=== PATIENT | female | born 1975 ===

== ENCOUNTER → 2023-03-20 11:08 | Outpatient (CLI) | payer OTHER, SELFPAY ==
--- NOTE | ~2023-03-20 | CT_ITS ---
EXAMINATION: CTA chest PE protocol DATE: 03/20/2023 12:03 INDICATION: Shortness of breath. TECHNIQUE: Computed tomography angiography (CTA) of the chest was performed with 100 mL Omnipaque-350 intravenous contrast timed to evaluate the pulmonary arteries. Coronal maximum intensity projection 3D-reconstructions were created by the technologist. Automated exposure control and iterative reconst ruction technique were employed. The dose-length product was 148.48 mGy-cm. COMPARISON: None. FINDINGS: There is mild scarring at the lung apices. The lungs demonstrate minimal atelectasis. There is 6 mm and 4 mm nodules in left lower lobe. There is a 5 mm nodule in left upper lobe. There is mos aic attenuation in the inferior lungs, likely small airways disease. No pleural effusion. There are p olypoid masses in the trachea and bronchi measuring up to 4 mm. The heart size is normal. No pericard ial effusion. There are changes of cholecystectomy. There is mild thoracic spondylosis. There is a ch ronic compression fracture of T6. There is a hemangioma in T3 vertebral body. IMPRESSION: 1. No pulmonary embolus. 2. Pulmonary nodules measuring up to 6 mm, probably benign. Consider noncontrast low-dose chest CT in 6-12 months. 3. Polypoid masses in the trachea and bronchi measuring up to 4 mm. These findings may be transient m ucous or tracheobronchial papillomatosis. 4. Mosaic attenuation in the inferior lungs, likely small airways disease. Reviewed, dictated and finalized at location A. IMPRESSION: 1. No pulmonary embolus. 2. Pulmonary nodules measuring up to 6 mm, probably benign. Consider noncontras t low-dose chest CT in 6-12 months. 3. Polypoid masses in the trachea and bronchi measuring up to 4 mm. These findi ngs may be transient mucous or tracheobronchial papillomatosis. 4. Mosaic attenuation in the inferior lungs, likely small airways disease.
== END ==
PROVIDERS: PCP Family Medicine; Visit Provider Family Medicine
DX: R06.02 Shortness of breath (principal); R07.9 Chest pain, unspecified; R91.8 Other nonspecific abnormal finding of lung field
CPT/HCPCS: 71275; Q9967